=== PATIENT | female | born 1995 | race Caucasian/White ===

== ENCOUNTER 2021-07-07 18:00 | Emergency (ER) | payer MEDICAID ==
[~2021-07-07] VITALS: Ht 170.2 cm; Wt 76.7 kg
[2021-07-07 18:03] VITALS: BP 135/77
--- NOTE | 2021-07-07 18:29 | NUR ---
PT AMBULATED TO BED 9
--- NOTE | 2021-07-07 18:32 | NUR ---
25 Y/O FEMALE C/O RIGHT MIDDLE FINGER PAIN 8/10 S/P PUNCHING CONCRETE WALL X1DAY. NO OBVIOUS DEFORMITY NOTED. DENIES FEVER/CHILLS. DENIES N/V. SWELLING NOTED ON BILATERAL HANDS ALONG WITH BRUISING AND ABRASIONS. PT IS ABLE TO MOVE HER FIGNERS AND CAP REFILL <2SECONDS. PMH: ASTHMA NKA
[2021-07-07] MEDS: IBUPROFEN 600 MG TAB PO ONE (18:37)
--- NOTE | 2021-07-07 18:37 | NUR ---
PT TAKEN TO XRAY VIA W/C
--- NOTE | 2021-07-07 18:41 | NUR ---
PT RETURNED TO BED 9 FROM XRAY VIA W/C
[2021-07-07] MEDS: ACETAMINOPHEN 325 MG TAB PO ONE (18:44)
--- NOTE | 2021-07-07 18:52 | NUR ---
PA MIRANDA BEDSIDE UPDATING PATIENT
[2021-07-07] MEDS ORDERED: BACITRACIN OINT 500 UNITS/GM PKT TP ONE (18:57)
[2021-07-07] MEDS ORDERED: BACI1PAC6 TP (18:57)
[2021-07-07] MEDS: BACITRACIN OINT 500 UNITS/GM PKT TP ONE (18:57)
[2021-07-07 19:06] VITALS: BP 135/77
--- NOTE | 2021-07-07 19:06 | NUR ---
PT BILATERAL HANDS WRAPPED W/ 1" GAUZE ROLL
== END 2021-07-07 19:07 | disposition home or self-care (01) ==
LOC: MED 18:00
DX: S60.221A Contusion of right hand, initial encounter (principal); S60.222A Contusion of left hand, initial encounter; R03.0 Elevated blood-pressure reading, without diagnosis of hypertension; J45.909 Unspecified asthma, uncomplicated; Z79.899 Other long term (current) drug therapy; W22.01XA Walked into wall, initial encounter; Y93.89 Activity, other specified; Y92.89 Other specified places as the place of occurrence of the external cause; Y99.8 Other external cause status
CPT/HCPCS: 73130; 99284